=== PATIENT | female | born 1985 | race Two or more races ===

== ENCOUNTER 2021-10-03 06:48 | Emergency (ER) | payer MEDICAID, OTHER ==
[~2021-10-03] VITALS: Ht 160 cm; Wt 99.8 kg
[2021-10-03 06:48] VITALS: BP 132/96
[2021-10-03] MEDS ORDERED: IBUPROFEN 800 MG TAB PO ONE (08:00)
[2021-10-03] MEDS ORDERED: CEPH500T PO (08:24)
[2021-10-03] MEDS ORDERED: IBUP800T27 PO (08:24)
== END 2021-10-03 08:31 | disposition home or self-care (01) ==
LOC: ER 06:48
DX: T88.1XXA Other complications following immunization, not elsewhere classified, initial encounter (principal); H65.02 Acute serous otitis media, left ear; R51.9 Headache, unspecified

== ENCOUNTER 2022-05-13 06:00 | Emergency (ER) | payer MEDICAID ==
[~2022-05-13 06:00] MED LIST: CEPH500T PO; IBUP800T27 PO
[2022-05-13 06:21] VITALS: BP 126/70
[2022-05-13] MEDS ORDERED: KETOROLAC TROMETH 60MG/2ML VIAL IM ONE (09:45)
[2022-05-13] MEDS ORDERED: CYCL-837 PO (09:48)
[2022-05-13] MEDS ORDERED: IBUP800T27 PO (09:48)
== END 2022-05-13 10:30 | disposition home or self-care (01) ==
LOC: ER 06:00
DX: S39.012A Strain of muscle, fascia and tendon of lower back, initial encounter (principal); M54.42 Lumbago with sciatica, left side; Z90.49 Acquired absence of other specified parts of digestive tract; Z79.1 Long term (current) use of non-steroidal anti-inflammatories (NSAID); Z79.899 Other long term (current) drug therapy; X58.XXXA Exposure to other specified factors, initial encounter; Y93.89 Activity, other specified; Y92.89 Other specified places as the place of occurrence of the external cause; Y99.8 Other external cause status
CPT/HCPCS: 72100; 96372; 99283; J1885

== ENCOUNTER 2022-08-09 10:40 | Emergency (ER) | payer MEDICAID ==
[~2022-08-09] VITALS: Ht 167.6 cm; Wt 99.6 kg
[~2022-08-09 10:40] MED LIST changes: +CYCL-837 PO
[2022-08-09 11:07] VITALS: BP 137/86
[2022-08-09 11:50] LABS: Basophils # (auto) 0 10 ^3/uL (0-0.2); Basophils % (auto) 0.4 % (0.0-2.0); Eosinophils # (auto) 0.1 10 ^3/uL (0-0.8); Eosinophils % (auto) 1.3 % (0.0-7.0); Lymphocytes # (auto) 1.6 10 ^3/uL (0.4-5.4); Lymphocytes % (auto) 23.1 % (10.0-50.0); Mean Corpuscular Hemoglobin 32.6 pg (28.0-32.0); Mean Corpuscular Hgb Conc. 33.3 g/dL (32.0-36.0); Mean Corpuscular Volume 97.9 fL (80.0-100.0); Monocytes # (auto) 0.8 10 ^3/uL (0-1.3); Monocytes % (auto) 11.5 % (0.0-12.0); Neutrophils # (auto) 4.5 10 ^3/uL (1.6-8.6); Neutrophils % (auto) 63.7 % (37.0-80.0); Red Blood Cells 4.29 10^6/uL (4.0-5.20); Red Cell Distribution Width 12.5 % (11.8-14.3)
[2022-08-09 12:11] LABS: BUN/Creatinine Ratio 17.6; Calcium 8.2 mg/dL (8.5-10.1); Potassium 4.6 mmol/L (3.5-5.1)
[2022-08-09] MEDS ORDERED: AMOX-277 PO (12:46)
[2022-08-09] MEDS ORDERED: IBUP800T27 PO (12:46)
== END 2022-08-09 13:02 | disposition home or self-care (01) ==
LOC: ER 10:40
DX: S29.011A Strain of muscle and tendon of front wall of thorax, initial encounter (principal); S29.012A Strain of muscle and tendon of back wall of thorax, initial encounter; H65.02 Acute serous otitis media, left ear; X58.XXXA Exposure to other specified factors, initial encounter; Y93.89 Activity, other specified; Y92.89 Other specified places as the place of occurrence of the external cause; Y99.8 Other external cause status
CPT/HCPCS: 36415; 71046; 80048; 84484; 85025; 93005

== ENCOUNTER 2023-06-25 08:03 | Emergency (ER) | payer MEDICAID ==
[~2023-06-25] VITALS: Ht 165.1 cm; Wt 98.3 kg
[~2023-06-25 08:03] MED LIST changes: +AMOX875T4 PO; +CARB200T4 PO; +IBUP-1456 PO; -IBUP800T27 PO
[2023-06-25 08:40] VITALS: BP 115/80; PULSE 95; RESP 16; TEMP 97.7; O2SAT 96
[2023-06-25] MEDS ORDERED: CEPH500C PO (09:07)
[2023-06-25] MEDS ORDERED: IBUP-1454 PO (09:07)
== END 2023-06-25 09:13 | disposition home or self-care (01) ==
LOC: ER 08:03
DX: S00.462A Insect bite (nonvenomous) of left ear, initial encounter (principal); Z90.49 Acquired absence of other specified parts of digestive tract; Z79.1 Long term (current) use of non-steroidal anti-inflammatories (NSAID); Z79.2 Long term (current) use of antibiotics; Z79.899 Other long term (current) drug therapy; W57.XXXA Bitten or stung by nonvenomous insect and other nonvenomous arthropods, initial encounter; Y93.89 Activity, other specified; Y92.89 Other specified places as the place of occurrence of the external cause; Y99.8 Other external cause status

== ENCOUNTER 2024-06-30 17:14 | Emergency (ER) | payer MEDICAID ==
[~2024-06-30] VITALS: Ht 165.1 cm; Wt 95.0 kg
[~2024-06-30 17:14] MED LIST changes: +CEPH500C PO; +IBUP-1454 PO
[2024-06-30 17:20] VITALS: BP 129/71; RESP 16; O2SAT 97
[2024-06-30 18:51] LABS: Urine Bacteria FEW /hpf (None Seen); Urine Blood Negative /uL (Negative); Urine Clarity Clear (Clear); Urine Color Light-Yellow (Yellow); Urine Protein, UAD Negative (Negative); Urine Specific Gravity 1.015 (1.001-1.035); Urine Urobilinogen Normal (Negative); Urine WBC 6 /hpf (0 - 5)
[2024-06-30 18:54] VITALS: PULSE 103
[2024-06-30 19:28] LABS: Basophils # (auto) 0 10 ^3/uL (0-0.2); Basophils % (auto) 0.3 % (0.0-2.0); Eosinophils # (auto) 0 10 ^3/uL (0-0.8); Eosinophils % (auto) 0.2 % (0.0-7.0); Hematocrit 40.6 % (36.0-46.0); Lymphocytes # (auto) 3.2 10 ^3/uL (0.4-5.4); Lymphocytes % (auto) 27.6 % (10.0-50.0); Mean Corpuscular Hemoglobin 33.9 pg (28.0-32.0); Mean Corpuscular Hgb Conc. 34.4 g/dL (32.0-36.0); Mean Corpuscular Volume 98.4 fL (80.0-100.0); Monocytes # (auto) 0.8 10 ^3/uL (0-1.3); Monocytes % (auto) 7.1 % (0.0-12.0); Neutrophils # (auto) 7.6 10 ^3/uL (1.6-8.6); Neutrophils % (auto) 64.8 % (37.0-80.0); Nucleated Red Blood Cells % 0.1 %; Platelet Count (auto) 319 10^3/uL (140-450); Red Blood Cells 4.13 10^6/uL (4.0-5.20); Red Cell Distribution Width 13.1 % (11.8-14.3); White Blood Cell 11.7 10^3/uL (4.4-10.8)
[2024-06-30 19:55] LABS: Chloride 109 mmol/L (98-107); Potassium 4.1 mmol/L (3.5-5.1); Sodium 138 mmol/L (136-145)
[2024-06-30 19:56] LABS: Anion Gap 8 (5-15); Calcium 10.1 mg/dL (8.7-10.4); Carbon Dioxide 21 mmol/L (20-30)
[2024-06-30 20:01] LABS: Blood Urea Nitrogen 9 mg/dL (9-23); Glucose 96 mg/dL (74-106)
[2024-06-30] MEDS ORDERED: NITR-87 PO (21:23)
== END 2024-07-01 02:49 | disposition home or self-care (01) ==
LOC: ER 17:14
DX: N39.0 Urinary tract infection, site not specified (principal); D72.829 Elevated white blood cell count, unspecified; Z90.49 Acquired absence of other specified parts of digestive tract
CPT/HCPCS: 36415; 70450; 80048; 81001; 85025; 85379; 93005

== ENCOUNTER 2024-11-17 02:15 | Emergency (ER) | payer MEDICAID ==
[~2024-11-17] VITALS: Ht 165.1 cm; Wt 102.5 kg
[~2024-11-17 02:15] MED LIST changes: +NITR-87 PO
[2024-11-17 03:05] VITALS: BP 126/75; PULSE 80; RESP 18; TEMP 97.6; O2SAT 98
[2024-11-17] MEDS ORDERED: AMOX875T4 PO (03:29)
--- NOTE | 2024-11-17 03:29 | ED.PDOC ---
Eye-HPI HPI Comments 39-YEAR-OLD FEMALE PRESENTS TO ER WITH COMPLAINTS OF FOREIGN BODY TO LEFT EAR X1 DAY. PATIENT REPORTS THAT SHE FELT AN INSECT CRAWL AND GO INTO HER LEFT EAR AT 1:00 A.M. PRIOR TO ARRIVAL TO ER AND PRESENTS TO ER TODAY FOR FOREIGN BODY REMOVAL. DENIES ANY PAIN. DENIES ANY ATTEMPT TO REMOVE THE INSECT AND STATES SHE CAN STILL FEEL THE INSECT MOVING INSIDE HER LEFT EAR CANAL. DENIES BLEEDING/DRAINAGE, DIZZINESS, NAUSEA/VOMITING OR ANY FURTHER SYMPTOMS/COMPLAINTS Chief Complaint: Foreign Body Time Seen by MD: 02:33 Primary Care Provider: DENIES Reviewed Notes: Nurses Notes, Medications, Allergies Allergies: Coded Allergies: NO KNOWN ALLERGIES (Unverified , 10/03/21) Home Meds Active Scripts Amoxicillin & Pot Clavulanate (Amoxicillin/Potassium Cla) 875 Mg Tab, 1 TAB PO BID for 7 Days, #14 TAB 0 Refills Prov:ALCIRA TOURE 11/17/24 Nitrofurantoin Monohydrate Mac (Macrobid) 100 Mg Cap, 100 MG PO BID for 5 Days, #10 CAP Prov:MARY JO NARVAEZ MD 06/30/24 Ibuprofen (Ibuprofen) 600 Mg Tab, 1 TAB PO TID, #30 TAB Prov:MULUGETA CALDWELL 06/25/23 Cephalexin Monohydrate (Cephalexin) 500 Mg Cap, 1 CAP PO QID, #40 CAP Prov:MULUGETA CALDWELL 06/25/23 Carbamazepine (Carbamazepine) 200 Mg Tab, 1 TAB PO BID, #20 TAB 1 Refill Prov:CLAUS RODRIGUEZ PAC 11/05/22 Amoxicillin & Pot Clavulanate (Amoxicillin/Potassium Cla) 875 Mg Tab, 1 TAB PO BID, #20 TAB Prov:MULUGETA CALDWELL 08/09/22 Ibuprofen (Ibuprofen) 800 Mg Tab, 1 TAB PO TID, #30 TAB Prov:MULUGETA CALDWELL 08/09/22 Ibuprofen (Ibuprofen) 800 Mg Tab, 1 TAB PO TID PRN, #30 TAB 0 Refills Prov:ALCIRA TOURE 05/13/22 Cyclobenzaprine Hcl (Cyclobenzaprine Hcl) 5 Mg Tab, 1 TAB PO QPM PRN, #14 TAB 0 Refills Prov:ALCIRA TOURE 05/13/22 Ibuprofen (Ibuprofen) 800 Mg Tab, 800 MG PO Q8HP PRN for 8 Days, #24 TAB Prov:MULUGETA CALDWELL 10/03/21 Cephalexin Monohydrate (Cephalexin) 500 Mg Tab, 500 MG PO QID for 8 Days, #32 TAB Prov:MULUGETA CALDWELL 10/03/21 Information Source: Patient Mode of Arrival: Ambulatory Past Medical History PAST MEDICAL HISTORY: Denies Surgical History: Cholecystectomy, , Hernia Repair DIETITIAN RESEARCH History: No Pertinent DIETITIAN RESEARCH History Family History Family History: Family hx of heart shahla, Family hx of HTN Social History Smoker: Non-Smoker Alcohol: Denies ETOH Use Drugs: Denies Drug Use Lives In: Home Constitutional: denies: chills, diaphoresis, fatigue, fever, malaise, sweats, weakness, others EENTM: reports: others ( STATED IN HPI) Respiratory: denies: cough, hemoptysis, orthopnea, SOB at rest, shortness of breath, SOB with excertion, stridor, wheezing, others Cardiovascular: denies: chest pain, dizzy spells, diaphoresis, Dyspnea on exertion, edema, irregular heart beat, left arm pain, lightheadedness, palpitations, PND, syncope, others Gastrointestinal: denies: abdomen distended, abdominal pain, blood streaked bowels, constipated, diarrhea, dysphagia, difficulty swallowing, hematemesis, melena, nausea, poor appetite, poor fluid intake, rectal bleeding, rectal pain, vomiting, others Genitourinary: denies: abnormal vagina bleeding, burning, dyspareunia, dysuria, flank pain, frequency, hematuria, incontinence, pain, , vagina discharg e, urgency, others Neurological: denies: dizziness, fainting, headache, left sided numbness, left sided weakness, numbness, paresthesia, pre-existing deficit, right sided numbness, right sided weakness, seizure, speech problems, tingling, tremors, weakness, others Musculoskeletal: denies: back pain, gout, joint pain, joint swelling, muscle pain, muscle stiffness, neck pain, others Integumetry: denies: bruises, change in color, change in hair/nails, dryness, laceration, lesions, lumps, rash, wounds, others Allergic/Immunocompromised: denies: Difficulty Healing, Frequent Infections, Hives, Itching, others Hematologic/Lymphatic: denies: anemia, blood clots, easy bleeding, easy bruising, swollen glands, others Endocrine: denies: excessive hunger, excessive sweating, excessive thirst, excessive urination, flushing, intolerance to cold, intolerance to heat, unexplained weight gain, unexplained weight loss, others Psychiatric: denies: anxiety, bipolar disorder, depression, hopeless, panic d isorder, schizophrenia, sleepless, suicidal, others Physical Exam General Appearance: No Apparent Distress HEENT: PERRL/EOMI, Pharynx Normal, Other (BROWN INSECT FOREIGN BODY NOTED IN LEFT MIDDLE EAR CANAL, UNABLE TO VISUALIZE THE LEFT TM DUE TO INSECT FOREIGN BODY OBSCURING IT, NO ERYTHEMA/BLEEDING/DRAINAGE APPRECIATED. EAR EXAM ON RIGHT- UNREMARKABLE) Neck: Full Range of Motion, Non-Tender, Normal Respiratory: Chest Non-Tender, Lungs Clear, No Accessory Muscle Use, No Respiratory Distress, Normal Breath Sounds Cardiovascular: No Murmur, No Gallop, Regular Rate/Rhythm Breast Exam: Deferred Gastrointestinal: NOT DONE Genitalia: Deferred Pelvic: Deferred Rectal: Deferred Extremities: Normal capillary refill, Normal range of motion Neurologic: Alert, No Motor Deficits, Normal Affect, Normal Mood, No Sensory Deficits Cerebellar Function: Normal Reflexes: Normal Skin: Dry, Normal Color, Warm Lymphatic: No Adenopathy Was a procedure done? Was a procedure done?: Yes Sedation Sedation?: No Foreign Body Removal Foreign body in: Ear (LEFT) Anesthetic: Nothing Procedure: Identified, Removed (INSECT FOREIGN BODY SUCCESSFULLY REMOVED FROM LEFT MIDDLE EAR CANAL USING EAR LAVAGE AND ALLIGATOR FORCEPS. PATIENT TOLERATED WELL WITHOUT ANY COMPLICATION. MINIMAL ERYTHEMA NOTED IN LEFT MIDDLE EAR CANAL POST FOREIGN BODY REMOVAL. REMAINDER BILATERAL EAR EXAM POST FOREIGN BODY REMOVAL-UNREMARKABLE) Informed consent obtained: Yes Risks/benefits/alt described: Yes EENT DIFF Eye: N/A Ear: Abrasion, Cerumen Impaction, Otitis Externa, Perforation X-Ray, Labs, Meds, VS Vital Signs Date Time Temp Pulse Resp B/P (MAP) Pulse Ox O2 Delivery O2 Flow Rate FiO2 11/17/24 02:24 97.8 80 16 126/75 (92) 96 PATIENT REPORTED IMPROVEMENT IN SYMPTOMS AND IN NO DISTRESS PRIOR TO DISCHARGE ADVISED TO FOLLOW UP WITH PCP IN 1-2 DAYS PATIENT VERBALIZED UNDERSTANDING AND AGREEABLE WITH CURRENT PLAN OF CARE ADVISED TO RETURN TO ER IMMEDIATELY IF SYMPTOMS WORSEN Time of 1ST Reevaluation: 03:02 Reevaluation 1ST: N/A Time of 2ND Reevaluation: 03:20 Reevaluation 2ND: Improved Patient Education/Counseling: Diagnosis, Treatment, Prognosis, Need For Follow Up Family Education/Counseling: No Family Present Departure 1 Departure Time of Disposition: 03:22 Impression: Primary Impression: Foreign body of ear, left Qualified Codes: T16.2XXA - Foreign body in left ear, initial encounter Disposition: HOME / SELF CARE / HOMELESS Condition: Stable e-Prescriptions Amoxicillin & Pot Clavulanate (Amoxicillin/Potassium Cla) 875 Mg Tab 1 TAB PO BID for 7 Days, #14 TAB 0 Refills Prov: ALCIRA TOURE 11/17/24 Discharged With: Self Critical Care Note Critical Care Time?: No Stability Stability form required: No Heart Score Heart Score: Heart Score Response (Comments) Value History N/A 0 EKG N/A 0 Age N/A 0 Risk Factors N/A 0 Troponin N/A 0 Total 0 ALCIRA TOURE Nov 17, 2024 03:29
== END 2024-11-17 03:43 | disposition home or self-care (01) ==
LOC: ER 02:15
DX: T16.2XXA Foreign body in left ear, initial encounter (principal); Z90.49 Acquired absence of other specified parts of digestive tract; Z98.890 Other specified postprocedural states; W44.F4XA Insect entering into or through a natural orifice, initial encounter; Y93.89 Activity, other specified; Y92.89 Other specified places as the place of occurrence of the external cause; Y99.8 Other external cause status
CPT/HCPCS: 69200